=== PATIENT | female | born 1940 | race Caucasian/White ===

== ENCOUNTER 2017-09-25 19:18 | Emergency (ER) | payer MEDICARE, OTHER ==
[~2017-09-25] VITALS: Ht 165.1 cm; Wt 74.8 kg
[2017-09-25] MEDS ORDERED: NAPR220 PO (19:51)
[2017-09-25] MEDS ORDERED: SERT25 PO (19:56)
[2017-09-25] MEDS ORDERED: OMEPRAZOLE MAGN20 MG PO (19:56)
[2017-09-25] MEDS ORDERED: METO25ER PO (19:56)
[2017-09-25] MEDS ORDERED: CALCITRATE200 MG (20:05)
[2017-09-25] MEDS ORDERED: Ocuvite Softge1 EAC1 PO (20:05)
[2017-09-25] MEDS ORDERED: CLARITIN10 MG (20:05)
[2017-09-25] MEDS ORDERED: VITAMIN D5000 UNI1 PO (20:06)
[2017-09-25] MEDS ORDERED: CYAN500 PO (20:06)
== END 2017-09-25 20:43 | disposition home or self-care (01) ==
LOC: ER 19:18
DX: S93.402A Sprain of unspecified ligament of left ankle, initial encounter (principal); J45.909 Unspecified asthma, uncomplicated; Z88.2 Allergy status to sulfonamides; Z88.7 Allergy status to serum and vaccine; Z88.5 Allergy status to narcotic agent; W19.XXXA Unspecified fall, initial encounter
CPT/HCPCS: 73560-RT; 73610; 73630; 99283